=== PATIENT | male | born 1965 | race Asian ===

== ENCOUNTER 2023-08-08 08:27 | Day surgery (SDC) | payer MEDICAID, OTHER ==
[~2023-08-08] VITALS: Ht 157.5 cm; Wt 54.4 kg
[2023-08-08] MEDS ORDERED: MEPERIDINE 100 MG INJ. 100 MG/ML VIAL ONE (11:48)
[2023-08-08] MEDS ORDERED: MIDAZOLAM HCL 5 MG/5 ML VIAL ONE (11:49)
[2023-08-08 15:20] VITALS: O2SAT 100
[2023-08-08 17:18] VITALS: BP_SYST 104; PULSE 66; RESP 17
== END 2023-08-08 14:10 | disposition home or self-care (01) ==
LOC: SDS 08:27 → SMU 08:29 → SDS 14:10
PROVIDERS: ATTEND Internal Medicine Gastroenterology
DX: Z12.11 Encounter for screening for malignant neoplasm of colon (principal); K64.8 Other hemorrhoids; D12.3 Benign neoplasm of transverse colon; D12.5 Benign neoplasm of sigmoid colon
CPT/HCPCS: 99152; 45385; 82948; 88305; G0378; J2250; J2175